=== PATIENT | female | born 1995 | race African-American/Black ===

== ENCOUNTER 2017-04-04 18:02 | Emergency (ER) | payer OTHER ==
[~2017-04-04] VITALS: Ht 157.5 cm; Wt 70.8 kg
--- NOTE | ~2017-04-04 | EKG ---
[address] [place] [address] ELECTROCARDIOGRAM REPORT Name: NOEMÍ BONILLA Room #: DEP [facility] [id number] Admission: 04/04/17 Attend Phys: Discharge: 04/04/17 Date of : [birth year] Report #: [id number] THIS REPORT FOR: //name// [facility] ED Test Date: 2017-04-04 Test Time: 19:26:15 Pat Name: NOEMÍ BONILLA Department: Room: Gender: F Director Of Quantitative Research: Pollo YA : 1995 Requested By: Cathie Johnston Order Number: [id number] MD: Duane Olivo Measurements Intervals [place] Rate: 76 P: 43 MT: 150 QRS: 64 QRSD: 90 T: 47 QT: 367 QTc: 413 Interpretive Statements Sinus rhythm Early repolarization No previous ECG available for comparison Electronically Signed On 04-05-2017 8:09:59 [employer] by Duane Olivo [email or web address] <ELECTRONICALLY SIGNED> By: Duane Olivo MD, [facility] 04/05/17 0809 1926 25 Duane Olivo MD, FACC /EPI
[2017-04-04 19:20] LABS: URINE BILIRUBIN NEGATIVE (Negative); URINE BLOOD TRACE (Negative); URINE CLARITY CLEAR; URINE COLOR YELLOW; URINE GLUCOSE-RANDOM* NEGATIVE (Negative); URINE KETONES NEGATIVE (Negative); URINE LEUKOCYTES 2+ (Negative); URINE NITRITE NEGATIVE (Negative); URINE PROTEIN (DIPSTICK) NEGATIVE (Negative); URINE SPECIFIC GRAVITY 1.025 (1.005-1.035); URINE UROBILINOGEN 0.2 E.U./dl (0.2-1.0)
[2017-04-04 19:30] LABS: BACTERIA 1-9 Few /HPF (None Seen); CASTS None Seen /LPF (None Seen); CRYSTALS None Seen /LPF (None Seen); SQUAMOUS >10 Many /LPF (0-3); URINE RBC 0-2 Rare /HPF (0-2)
[2017-04-04 20:36] LABS: ABSOLUTE NEUTROPHILS 2.5 thou/uL (1.4-8.2); BASOPHILS 0.5 % (0.0-2.0); EOSINOPHILS 1.2 % (0.0-3.0); HEMATOCRIT 43.3 % (37.0-47.0); HEMOGLOBIN 14.7 gm/dL (12.0-15.0); LYMPHOCYTES 37.8 % (24.0-44.0); MCH 32.9 pg (26.0-34.0); MCHC 33.9 g/dL (28.0-37.0); MCV 96.9 fL (80.0-100.0); MONOCYTES 11.7 % (1.0-8.0); PLATELET COUNT 298 thou/uL (150-400); POLYS 48.8 % (36.0-66.0); RBC 4.47 mil/uL (4.20-5.00); RDW 11.8 % (10.5-14.5)
[2017-04-04 20:44] LABS: ANION GAP 11 mmol/L (7-16); BUN 11 mg/dL (7-18); CALCIUM 9.2 mg/dL (8.5-10.1); CHLORIDE 103 mmol/L (98-107); CO2 26 mmol/L (21-32); CREATININE 0.9 mg/dL (0.6-1.0); GLUCOSE 86 mg/dL (74-106); POTASSIUM 3.7 mmol/L (3.5-5.1); SODIUM 140 mmol/L (136-145)
[2017-04-04 20:53] LABS: SGOT 23 U/L (15-37); SGPT 25 U/L (30-65); TOTAL BILIRUBIN 1.2 mg/dL (<0.1-1.0); TOTAL PROTEIN 7.8 g/dL (6.4-8.2); TROPONIN-I < 0.04 ng/mL (<0.06)
[2017-04-04] MEDS ORDERED: KEFLEX500 M1 PO (21:29)
== END 2017-04-04 22:08 | disposition home or self-care (01) ==
LOC: ER 18:02
PROVIDERS: Physician Assistant
DX: R55 Syncope and collapse (principal); E86.0 Dehydration; N39.0 Urinary tract infection, site not specified

== ENCOUNTER 2017-04-29 23:42 | Emergency (ER) | payer OTHER ==
[~2017-04-29] VITALS: Ht 160 cm; Wt 70.8 kg
[~2017-04-29 23:42] MED LIST: KEFLEX500 M1 PO
[2017-04-30] MEDS ORDERED: FLAGYL500 MG PO (01:59)
== END 2017-04-30 02:14 | disposition home or self-care (01) ==
LOC: ER 23:42
DX: N76.0 Acute vaginitis (principal); B96.89 Other specified bacterial agents as the cause of diseases classified elsewhere; J45.909 Unspecified asthma, uncomplicated; Z88.0 Allergy status to penicillin

== ENCOUNTER 2017-06-01 01:40 | Emergency (ER) | payer OTHER ==
[~2017-06-01] VITALS: Ht 157.5 cm; Wt 70.8 kg
[~2017-06-01 01:40] MED LIST changes: +FLAGYL500 MG PO
[2017-06-01] MEDS ORDERED: ACCUNEB SO1.25 MG/1 INH (01:53)
[2017-06-01 02:10] LABS: URINE BILIRUBIN NEGATIVE (Negative); URINE BLOOD 2+ (Negative); URINE CLARITY CLEAR; URINE COLOR YELLOW; URINE GLUCOSE-RANDOM* NEGATIVE (Negative); URINE KETONES NEGATIVE (Negative); URINE LEUKOCYTES-REFLEX NEGATIVE (Negative); URINE NITRITE-REFLEX NEGATIVE (Negative); URINE PROTEIN (DIPSTICK) NEGATIVE (Negative); URINE SPECIFIC GRAVITY 1.025 (1.005-1.035); URINE UROBILINOGEN 0.2 E.U./dl (0.2-1.0)
[2017-06-01 02:25] LABS: ABSOLUTE NEUTROPHILS 2.8 thou/uL (1.4-8.2); BASOPHILS 0.4 % (0.0-2.0); EOSINOPHILS 1.4 % (0.0-3.0); HEMATOCRIT 43.3 % (37.0-47.0); HEMOGLOBIN 14.4 gm/dL (12.0-15.0); LYMPHOCYTES 49.3 % (24.0-44.0); MCHC 33.2 g/dL (28.0-37.0); MCV 96.5 fL (80.0-100.0); MONOCYTES 8.2 % (1.0-8.0); PLATELET COUNT 308 thou/uL (150-400); POLYS 40.7 % (36.0-66.0); RBC 4.49 mil/uL (4.20-5.00); RDW 12.3 % (10.5-14.5); WBC 6.9 thou/uL (4.0-11.0)
[2017-06-01 02:27] LABS: CALCIUM 8.8 mg/dL (8.5-10.1); CREATININE 0.9 mg/dL (0.6-1.0); POTASSIUM 3.6 mmol/L (3.5-5.1)
[2017-06-01 02:33] LABS: ALBUMIN 3.7 g/dL (3.4-5.0); TOTAL BILIRUBIN 0.6 mg/dL (<0.1-1.0); TOTAL PROTEIN 7.3 g/dL (6.4-8.2)
[2017-06-01 02:38] LABS: BACTERIA-REFLEX 1-9 Few /HPF (None Seen); CASTS None Seen /LPF (None Seen); CRYSTALS None Seen /LPF (None Seen); MUCUS 0-3 Light strn/LPF (None Seen); SQUAMOUS >10 Many /LPF (0-3); URINE RBC 3-10 Few /HPF (0-2); URINE WBC-REFLEX 0-5 Rare /HPF (0-5)
[2017-06-01] MEDS ORDERED: DOXYCYCLINE 10100 MG PO (04:43)
[2017-06-01] MEDS ORDERED: TRAMADOL 50 MG50 MG PO (04:43)
[2017-06-01] MEDS ORDERED: NAPROSYN500 MG PO (04:43)
[2017-06-01 05:07] VITALS: BP 99/54
== END 2017-06-01 05:12 | disposition home or self-care (01) ==
LOC: ER 01:40
PROVIDERS: Emergency Medicine
DX: N73.9 Female pelvic inflammatory disease, unspecified (principal); N91.1 Secondary amenorrhea; J45.909 Unspecified asthma, uncomplicated; Z88.0 Allergy status to penicillin